=== PATIENT | female | born 1970 | race Caucasian/White ===

== ENCOUNTER 2018-12-15 22:59 | Emergency (ER) | payer MEDICAID ==
[~2018-12-15] VITALS: Ht 170.2 cm; Wt 60.3 kg
[2018-12-15 23:01] VITALS: BP 107/72
== END 2018-12-15 23:22 | disposition home or self-care (01) ==
LOC: M.ERS 22:59
DX: M79.602 Pain in left arm (principal); M81.0 Age-related osteoporosis without current pathological fracture; F17.210 Nicotine dependence, cigarettes, uncomplicated; Z86.2 Personal history of diseases of the blood and blood-forming organs and certain disorders involving the immune mechanism

== ENCOUNTER 2018-12-16 21:48 | Emergency (ER) | payer MEDICAID ==
[~2018-12-16] VITALS: Ht 165.1 cm; Wt 54.4 kg
[2018-12-16 21:58] VITALS: BP 135/96
== END 2018-12-16 22:05 | disposition left against medical advice (07) ==
LOC: M.ERS 21:48
DX: F41.0 Panic disorder [episodic paroxysmal anxiety] (principal); M81.0 Age-related osteoporosis without current pathological fracture; Z88.1 Allergy status to other antibiotic agents; Z86.2 Personal history of diseases of the blood and blood-forming organs and certain disorders involving the immune mechanism

== ENCOUNTER 2018-12-17 09:13 | Emergency (ER) | payer MEDICAID ==
[~2018-12-17] VITALS: Ht 170.2 cm; Wt 61.2 kg
[2018-12-17 12:06] VITALS: BP 132/73
== END 2018-12-17 12:08 | disposition home or self-care (01) ==
LOC: M.ERS 09:13
DX: T74.21XA Adult sexual abuse, confirmed, initial encounter (principal); M81.0 Age-related osteoporosis without current pathological fracture; Z88.1 Allergy status to other antibiotic agents; Z86.2 Personal history of diseases of the blood and blood-forming organs and certain disorders involving the immune mechanism; Z90.710 Acquired absence of both cervix and uterus; Y04.8XXA Assault by other bodily force, initial encounter